=== PATIENT | female | born 1960 | race Caucasian/White ===

== ENCOUNTER 2024-09-18 13:19 | Emergency (ER) | payer OTHER ==
[~2024-09-18] VITALS: Ht 152.4 cm; Wt 63.0 kg
[2024-09-18 13:40] VITALS: BP 220/80; O2SAT 96
[2024-09-18] MEDS ORDERED: MORPHINE SULFATE 4 MG/ML VIAL IV ONE (14:00)
[2024-09-18] MEDS ORDERED: SODIUM CHLORIDE 0.45 % 1,000 ML IV SCH (14:00)
[2024-09-18 14:19] LABS: HEMATOCRIT 37.1 % (36.0-45.00); HEMOGLOBIN 12.2 g/dL (12.0-15.00); MEAN CELL VOLUME 85.3 fL (80.00-100.00); MEAN CORPUSCULAR HEMOGLOBIN 28.2 pg (27.00-32.0); PLATELET COUNT 320 K/uL (150-450); RED BLOOD COUNT 4.35 M/uL (4.00-6.00); RED CELL DISTRIBUTION WIDTH 13.2 % (11.5-14.5)
[2024-09-18 14:40] LABS: ALBUMIN 3.1 gm/dL (3.4-5.0); BILIRUBIN TOTAL 0.45 mg/dL (0.3-1.2); CALCIUM 9.3 mg/dL (8.5-10.1); CREATININE SERUM 1.45 mg/dL (0.55-1.02); GFR 36.13; GLOBULINA 3.3 G/DL (2.4-3.5); POTASSIUM 4.21 mEq/L (3.5-5.1); TOTAL PROTEIN 6.4 gm/dL (6.4-8.2)
[2024-09-18 16:04] LABS: INR 0.99; PROTHROMBIN TIME 10.8 SECONDS (9.0-11.5)
== END 2024-09-18 15:30 | disposition home or self-care (01) ==
LOC: ER 13:19
PROVIDERS: General Practice
DX: G89.11 Acute pain due to trauma (principal); M25.562 Pain in left knee; M12.569 Traumatic arthropathy, unspecified knee; I10 Essential (primary) hypertension; E11.9 Type 2 diabetes mellitus without complications
CPT/HCPCS: 29505; 36415; 71045; 73502; 73560; 93005; 96365; 99283; J2270

== ENCOUNTER → 2024-09-24 | Day surgery (SDC) | payer OTHER ==
[2024-09-23 12:36] VITALS: BP 150/70
[2024-09-23 12:59] LABS: URINE APPEARANCE Clear; URINE BILIRRUBIN Negative (NEGATIVE); URINE BLOOD Trace; URINE COLOR Yellow; URINE GLUCOSE Negative (NEGATIVE); URINE KETONE Negative (NEGATIVE); URINE LEUKOCYTE Negative; URINE NITRATE Negative; URINE UROBILINOGEN 0.2 E.U./dl
[2024-09-23 13:03] LABS: URINE BACTERIA 145.5 uL (0.0-1933); URINE EPITHELIAL CELLS 1.4 uL (0.0-38.8); URINE WBC 4.5 uL (0.0-23.2)
[2024-09-23 13:11] LABS: HEMATOCRIT 39.1 % (36.0-45.00); HEMOGLOBIN 13.1 g/dL (12.0-15.00); MEAN CELL VOLUME 85.2 fL (80.00-100.00); MEAN CORPUSCULAR HEMOGLOBIN 28.5 pg (27.00-32.0); MEAN CORPUSCULAR HGB CONC 33.4 g/dl (32.0-36.0); PLATELET COUNT 399 K/uL (150-450); RED BLOOD COUNT 4.59 M/uL (4.00-6.00); RED CELL DISTRIBUTION WIDTH 13.2 % (11.5-14.5)
[2024-09-23 13:12] LABS: URINE CAST 1.17 uL (0.0-1.40); URINE PROTEIN 300 (NEGATIVE); URINE RBC 1.9 uL (0.0-20.8)
[2024-09-23 13:36] LABS: PARTIAL THROMBOPLASTIN TIME 27.1 SECONDS (22.0-34.0); PROTHROMBIN TIME 10.9 SECONDS (9.0-11.5)
[2024-09-23 13:43] LABS: COL EPI 119 SECONDS (82-175)
[2024-09-23 14:10] LABS: ALBUMIN 3.4 gm/dL (3.4-5.0); BILIRUBIN TOTAL 0.56 mg/dL (0.3-1.2); CALCIUM 10.2 mg/dL (8.5-10.1); CREATININE SERUM 1.58 mg/dL (0.55-1.02); GFR 32.82; GLOBULINA 3.7 G/DL (2.4-3.5); POTASSIUM 5.07 mEq/L (3.5-5.1); TOTAL PROTEIN 7.1 gm/dL (6.4-8.2)
[~2024-09-24] VITALS: Ht 157.5 cm; Wt 63.0 kg
[~2024-09-24] MED LIST: BUPIVACAINE HCL/MPF 0.5% 30ML VIAL ONE; CEFAZOLIN SODIUM 1,000 MG VIAL ONE; COZAAR25 MG PO; LABETALOL HCL 100 MG/20 ML ML ONE; LIDOCAINE HCL 1%/EPINEPHRINE 20ML VIAL IJ ONE; METFORMIN HCL1000 M2 PO; POVIDONE-IODINE 118 ML BOTT TOP ONE; hydrALAZINE HCL 20 MG VIAL ONE
== END | disposition home or self-care (01) ==
LOC: CIR.AMB 07:12
PROVIDERS: ATTEND Orthopaedic Surgery
DX: S82.032A Displaced transverse fracture of left patella, initial encounter for closed fracture (principal)

== ENCOUNTER 2024-10-24 08:10 | Outpatient (CLI) | payer OTHER ==
[~2024-10-24 08:10] MED LIST changes: -BUPIVACAINE HCL/MPF 0.5% 30ML VIAL ONE; -CEFAZOLIN SODIUM 1,000 MG VIAL ONE; -LABETALOL HCL 100 MG/20 ML ML ONE; -LIDOCAINE HCL 1%/EPINEPHRINE 20ML VIAL IJ ONE; -POVIDONE-IODINE 118 ML BOTT TOP ONE; -hydrALAZINE HCL 20 MG VIAL ONE
== END 2024-10-24 08:17 | disposition home or self-care (01) ==
LOC: RAD 08:10
PROVIDERS: ATTEND Orthopaedic Surgery
DX: S82.032D Displaced transverse fracture of left patella, subsequent encounter for closed fracture with routine healing (principal); S80.01XA Contusion of right knee, initial encounter; M25.561 Pain in right knee

== ENCOUNTER 2024-12-17 09:24 | Outpatient (CLI) | payer OTHER | END 2024-12-17 09:25 | disposition home or self-care (01) | LOC: RAD 09:24 | PROVIDERS: ATTEND Orthopaedic Surgery | DX: S82.032D Displaced transverse fracture of left patella, subsequent encounter for closed fracture with routine healing (principal); X58.XXXD Exposure to other specified factors, subsequent encounter ==

== ENCOUNTER 2024-12-23 07:17 | Outpatient (CLI) | payer OTHER ==
[~2024-12-23] VITALS: Ht 157.5 cm; Wt 58.5 kg
[2024-12-23 07:59] LABS: BASO % 0.8 % (0.1-1.2); EOS # 0.08 (0.04-0.54); EOS % 0.9 % (0.7-7.0); LYMPH # 2.23 (1.18-3.74); LYMPH % 24.8 % (19.3-53.1); MEAN PLATELET VOLUME 11.80 fl (9.4-12.4); MONO # 0.73 (0.24-0.82); MONO % 8.1 % (4.7-12.5); NEUT # 5.83 (1.56-6.13); NEUT % 65.0 % (34.0-71.1); RED CELL DISTRIBUTION WIDTH 14.3 % (11.6-14.4)
[2024-12-23 08:03] LABS: URINE APPEARANCE Clear; URINE BILIRRUBIN Negative (NEGATIVE); URINE BLOOD Negative; URINE COLOR Yellow; URINE KETONE Negative (NEGATIVE); URINE LEUKOCYTE Negative; URINE NITRATE Negative; URINE UROBILINOGEN 0.2 E.U./dl
[2024-12-23 08:07] LABS: URINE BACTERIA 11.9 uL (0.0-1933)
[2024-12-23 08:11] LABS: URINE CAST 0.58 uL (0.0-1.40); URINE EPITHELIAL CELLS 0.7 uL (0.0-38.8); URINE GLUCOSE >=1000 MG/DL (NEGATIVE); URINE PROTEIN 100 (NEGATIVE); URINE RBC 0.4 uL (0.0-20.8); URINE WBC 1.0 uL (0.0-23.2)
[2024-12-23 08:32] VITALS: BP 170/78
[2024-12-23 08:33] LABS: COL EPI 111 SECONDS (82-175)
[2024-12-23 09:03] LABS: INR 0.95
[2024-12-23 09:08] LABS: ALT/SGPT 26.0 U/L (12-78); AST/SGOT 20.0 U/L (15-37); BILIRUBIN TOTAL 0.36 mg/dL (0.3-1.2); BUN CREA RATIO 20.0 (7.0-25.0); CREATININE SERUM 1.91 mg/dL (0.55-1.02); GFR 26.37; GLOBULINA 3.1 G/DL (2.4-3.5); GLUCOSE FASTING 104.0 mg/dL (65-100); OSMOLALITY SERUM 297.0 MOSM/KG (275-295)
== END 2024-12-23 07:28 | disposition home or self-care (01) ==
LOC: RAD 07:17
PROVIDERS: ATTEND Orthopaedic Surgery
DX: D64.9 Anemia, unspecified (principal); E88.9 Metabolic disorder, unspecified; D68.8 Other specified coagulation defects; N39.0 Urinary tract infection, site not specified; Z22.322 Carrier or suspected carrier of Methicillin resistant Staphylococcus aureus; I10 Essential (primary) hypertension; Z76.89 Persons encountering health services in other specified circumstances

== ENCOUNTER 2025-01-07 07:23 | Day surgery (SDC) | payer OTHER ==
[~2025-01-07 07:23] MED LIST changes: +FENOFIBRATE150 MG PO; +FOSAMAX70 MG PO; +HORIZANT300 MG PO; +HYDRODIURIL12.5 MG PO; +IRBESARTAN300 MG PO; +JARDIANCE10 MG PO; +JENTADUETO 2.51 EAC1 PO; +LIPITOR40 MG PO
[2025-01-07] MEDS ORDERED: ISOPROPYL ALCOHOL 30 ML OUNCE TOP ONE (10:45)
[2025-01-07] MEDS ORDERED: CEFAZOLIN SODIUM 1,000 MG VIAL IV ONE (10:45)
[2025-01-07] MEDS ORDERED: ENALAPRILAT DIHYDRATE 1.25 MG/ML VIAL IV ONE ×3 (13:31→13:45)
[2025-01-07 22:23] VITALS: BP 149/68; O2SAT 100
== END 2025-01-07 17:15 | disposition home or self-care (01) ==
LOC: CIR.AMB 07:23
PROVIDERS: ATTEND Orthopaedic Surgery
DX: M65.861 Other synovitis and tenosynovitis, right lower leg (principal); M24.561 Contracture, right knee

== ENCOUNTER 2025-01-20 08:31 | Outpatient (CLI) | payer OTHER | END 2025-01-20 08:37 | disposition home or self-care (01) | LOC: RAD 08:31 | PROVIDERS: ATTEND Orthopaedic Surgery | DX: M25.562 Pain in left knee (principal); M24.562 Contracture, left knee; T84.84XD Pain due to internal orthopedic prosthetic devices, implants and grafts, subsequent encounter ==

== ENCOUNTER 2025-01-21 05:21 | Inpatient (IN) | payer OTHER ==
[~2025-01-21] VITALS: Ht 154.9 cm; Wt 0.5 kg
[2025-01-21] MEDS ORDERED: PROMETHAZINE HCL 50 MG/ML AMPUL IM PRN (08:00)
[2025-01-21] MEDS ORDERED: MORPHINE SULFATE 4 MG/ML VIAL IV ONE ×2 (08:00→08:45)
[2025-01-21] MEDS ORDERED: SODIUM CHLORIDE 0.45 % 1,000 ML IV SCH (08:00)
[2025-01-21] MEDS ORDERED: TRAMADOL HCL 50 MG TABLET PO PRN (08:00)
[2025-01-21] MEDS ORDERED: MEPERIDINE HCL/PF 50 MG/ML VIAL IM PRN (08:00)
[2025-01-21] MEDS ORDERED: ONDANSETRON HCL 2 MG/ML VIAL IV PRN (08:00)
[2025-01-21] MEDS ORDERED: ONDANSETRON 4 MG TAB.RAPDIS PO PRN (08:00)
[2025-01-21] MEDS ORDERED: hydrALAZINE HCL 20 MG VIAL IV ONE (08:15)
[2025-01-21] MEDS ORDERED: KETOROLAC TROMETHAMINE 60 MG VIAL IM STA (08:38)
[2025-01-21] MEDS ORDERED: PANTOPRAZOLE SODIUM 40 MG TABLET.DR PO SCH (09:00)
[2025-01-21] MEDS ORDERED: ACETAMINOPHEN 325 MG TABLET PO SCH (09:00)
[2025-01-21 12:44] VITALS: BP 190/80; O2SAT 98
[2025-01-21] MEDS ORDERED: KETOROLAC TROMETHAMINE 10 MG TABLET PO SCH (13:00)
[2025-01-21] MEDS ORDERED: hydrALAZINE HCL 20 MG VIAL IV PRN (13:15)
[2025-01-21 13:35] VITALS: BP 190/80
[2025-01-21 14:16] VITALS: BP 165/72
[2025-01-21 17:08] VITALS: BP 150/70
[2025-01-22 00:14] VITALS: BP 149/67
[2025-01-22 08:00] VITALS: BP 159/70
[2025-01-22] MEDS ORDERED: GABAPENTIN 300 MG CAPSULE PO SCH (17:00)
[2025-01-22] MEDS ORDERED: ATORVASTATIN CALCIUM 40 MG TABLET PO SCH (17:00)
[2025-01-22 18:20] VITALS: BP 174/86; O2SAT 98
[2025-01-23 01:51] VITALS: BP 135/76; O2SAT 99
[2025-01-23 08:00] VITALS: BP 168/68; O2SAT 99
[2025-01-23] MEDS ORDERED: HYDROCHLOROTHIAZIDE 12.5 MG CAPSULE PO SCH (09:00)
[2025-01-23] MEDS ORDERED: IRBESARTAN 300 MG TABLET PO SCH (09:00)
[2025-01-23] MEDS ORDERED: PATIENTS OWN MEDICATION (MEDICAMENTO EN PISO) PO SCH ×5 (09:00)
[2025-01-23 16:57] VITALS: BP 129/64; O2SAT 98
[2025-01-24 08:00] VITALS: BP 160/74; O2SAT 97
== END 2025-01-24 16:34 | DRG 566 ==
LOC: CIR.AMB 05:21 → O/R 09:29 → OB/GYN 09:29 → CIR.AMB 11:15 → OB/GYN 11:30 → CIR.AMB 16:30 → SURH 01-22 13:23 → SURG 01-22 14:35
PROVIDERS: ADMIT Orthopaedic Surgery; ATTEND Orthopaedic Surgery
PROC: 0SSDXZZ Reposition Left Knee Joint, External Approach (ICD-10-PCS; principal; 2025-01-21 16:30)
DX: M24.562 Contracture, left knee (principal); I10 Essential (primary) hypertension; E11.9 Type 2 diabetes mellitus without complications; Z79.84 Long term (current) use of oral hypoglycemic drugs